=== PATIENT | male | born 1975 | race Caucasian/White ===

== ENCOUNTER 2016-11-20 01:00 | Emergency (ER) | payer MEDICAID ==
[~2016-11-20] VITALS: Ht 208.3 cm; Wt 111.3 kg
--- OUTSIDE RECORDS SUMMARY | 2016-11-20 01:04 | XMS REPORT | Summary of Care ---
Author Author Steffanie Thorpe Organization Unknown Address [address] [place] [place] [id number] Phone Unavailable Care Team Providers Care Deli Cook Name Role Phone Rosy Chu M.D. Unavailable Unavailable Peterson Garner PP Unavailable Unavailable Unavailable Functional Status Functional Status Health Issues Name Dates Details Functional status health issues are not documented Status: Cognitive Status Health Issues Name Dates Details Cognitive status health issues are not documented Status: Problems Name Dates Details Hypertension (401.9, I10) Status: Active Atypical chest pain (786.59, R07.89) Status: Active Depression (311, F32.9) Status: Active Hypercholesterolemia (272.0, E78.0) Status: Active Shoulder pain (719.41, M25.519) Status: Active Medications Name Dates Details Fish Oil 1200 MG Oral Capsule TAKE 1 CAPSULE A DAY. MDD:take Refills: 0 Rosy Chu M.D. Started 02-Feb-2012 ActivePARoxetine HCl - 20 MG Oral Tablet TAKE 3 TABLETS DAILY Refills: 0 Rosy Chu M.D. Started 02-Feb-2012 ActiveLisinopril-Hydrochlorothiazide 20-12.5 MG Oral Tablet TAKE 1 TABLET DAILY. Refills: 0 Started Active Allergies and Adverse Reactions Name Dates Details No Known Drug Allergies Status: Active Procedures Procedure Dates Details Procedures not documented Immunization Name Dates Details Immunizations not documented Family History Grandfather Name Dates Details Family history of Congestive Heart Failure Status: Active Mother Name Dates Details Family history of Hepatitis Status: Active Family history of Mother At Age ____ Status: Active Father Name Dates Details Family history of Alcoholism Status: Active Social History Name Dates Details Smoking StatusFormer smokerNever smoker Vital Signs Date Test Result Details 17:08 BP Systolic 144 mm[Hg] Status: BP Diastolic 91 mm[Hg] Status: Temperature 98.8 f Status: Heart Rate 97 /min Status: Weight 247 lb Status: O2 SAT 97 % Status: Body Mass Index Calculated 33.5 kg/m2 Status: Body Surface Area Calculated 2.33 m2 Status: Results Date Description Value Details 07:59 XRay SHOULDER-Left Comments: Exam Date: 12/09/2015 17: 38Dictation Date: 12/10/2015 07:59 X SHOULDER COMP (MIN 2V) LT (Better) Plan of Care Planned Observations Name Dates Details Planned Goals not documented Goal Instructions Instructions not documented Encounters Appointment; Steffanie Thorpe Encounter Diagnosis: Problem not documented On 17:00
[2016-11-20] MEDS ORDERED: NITROGLYCERIN SUBLINGUAL 0.4 MG (NITROQUICK) TABLET SL ONE (01:37)
[2016-11-20] MEDS ORDERED: ASPIRIN 81 MG CHEW (LOW-DOSE) ONE (01:37)
[2016-11-20] MEDS ORDERED: SODIUM CHLORIDE FLUSH 3 ML SYR IV PRN (01:40)
[2016-11-20] MEDS ORDERED: SODIUM CHLORIDE FLUSH 10 ML SYR IV PRN (01:40)
[2016-11-20] MEDS ORDERED: ASPIRIN 81 MG CHEW (LOW-DOSE) PO ONE ×2 (01:40)
[2016-11-20 01:44] LABS: BASOPHILS % (AUTO) 0 % (0-2); EOSINOPHILS # (AUTO) 0.4 10^3uL; EOSINOPHILS % (AUTO) 5 % (0-4); LYMPHOCYTES # (AUTO) 2.9 X10^3; MEAN CORPUSCULAR VOLUME 86 FL (80-100); MEAN PLATELET VOLUME 10.3 FL (6.0-9.5); MONOCYTES # (AUTO) 0.8 X10^3; MONOCYTES % (AUTO) 10 % (3-11); NEUTROPHILS # (AUTO) 4.4 X10^3; NEUTROPHILS % (AUTO) 51 % (51-67); PLATELET COUNT 234 10^3uL (150-450); WHITE BLOOD COUNT 8.55 10^3uL (4.0-11.0)
[2016-11-20] MEDS: NITROGLYCERIN SUBLINGUAL 0.4 MG (NITROQUICK) TABLET SL PRN ×2 (01:44→02:00)
[2016-11-20 01:47] LABS: MEAN CORPUSCULAR HEMOGLOBIN 31.4 PG (26.0-34.0); MEAN CORPUSCULAR HGB CONC 36.7 g/dL (31.0-37.0)
[2016-11-20 01:51] LABS: ALBUMIN 4.3 g/dL (3.4-5.0); ANION GAP 13.3 MEQ/L (3-15); CALCULATED IONIZED CALCIUM 3.9 mg/dL (3.8-4.6); TOTAL PROTEIN 7.3 g/dL (6.4-8.5)
[2016-11-20] MEDS ORDERED: LORazepam 2 MG/ML (ATIVAN) 1 ML VIAL IV ONE (02:50)
[2016-11-20] MEDS ORDERED: ENOXAPARIN 100 MG/1 ML (LOVENOX) SYR SC ONE (03:30)
[2016-11-20] MEDS ORDERED: NITROGLYCERIN 2% OINTMENT (NITRO-BID) 1 GM UNIT DOSE PACKET TOP ONE (03:50)
[2016-11-20 04:10] VITALS: BP 109/49
--- NOTE | 2016-11-20 08:49 | Diagnostic Imaging Report ---
Clinical indication: Patient with chest pain. Exam: Portable chest x-ray upright view. Comparisons: None. Findings: Lungs/pleura: Suspected mild bibasilar atelectasis. Otherwise, lungs are clear. There is no pneumothorax. There is no pleural effusion. Mediastinum: Unremarkable. Pulmonary vasculature: Unremarkable. Heart: Unremarkable. Bones/extrathoracic soft tissue: Unremarkable. Impression: Suspected mild bibasilar atelectasis. Otherwise, there is no radiographic evidence of acute cardiopulmonary process. Dictated by: Dictated on workstation # [id number]
== END 2016-11-20 04:14 | disposition short-term general hospital (02) ==
LOC: ED 01:05
DX: R07.9 Chest pain, unspecified (principal)
CPT/HCPCS: 36415; 71010; 80053; 84484; 85025; 93005; 96361; 96372; 96374; 99285; A9270; J1650; J2060; J7030; 93010

== ENCOUNTER → 2016-11-20 | Outpatient (CLI) | payer MEDICAID ==
[~2016-11-20] MED LIST: LSNP20T PO; PARO30TA3 PO
== END ==
LOC: EMS 04:00
PROVIDERS: ATTEND Internal Medicine Cardiovascular Disease
DX: R07.89 Other chest pain (principal); R06.02 Shortness of breath